=== PATIENT | female | born 1975 | race Caucasian/White ===

== ENCOUNTER 2019-01-27 11:59 | Emergency (ER) | payer MEDICARE, OTHER ==
[2019-01-27 12:03] VITALS: TEMP 98.7
--- NOTE | 2019-01-27 12:51 | XR ---
EXAMINATION TYPE: XR chest 2V DATE OF EXAM: 01/27/2019 COMPARISON: NONE HISTORY: Sinus congestion and cough. TECHNIQUE: Frontal and lateral views of the chest are obtained. FINDINGS: There is no focal air space opacity, pleural effusion, or pneumothorax seen. The cardiac silhouette size is upper limits of normal. There is S-shaped scoliosis which is dextroconvex in curva ture centered mid to lower thoracic spine and levoconvex in curvature centered visualized portion of lumbar spine. IMPRESSION: No suspicious acute pulmonary process.
--- NOTE | 2019-01-27 13:18 | ED ---
URI HPI - General Chief Complaint: Upper Respiratory Infection Stated Complaint: Cough, sore throat Time Seen by Provider: 01/27/19 12:12 Source: patient Mode of arrival: ambulatory Limitations: no limitations - History of Present Illness Initial Comments: Patient is a 43-year-old female presenting to the emergency Department with complaints of a cough, runny nose, chest congestion for 4 days. Patient also woke up this morning with crusting and redness of her right eye. Patient denies fever, chills, nausea, vomiting, diarrhea, shortness of breath, chest pain. Patient states she has been under a lot of stress lately. Patient has no other complaints at this time. Upon arrival to the ER, vital signs are stable. - Related Data Home Medications Medication Instructions Recorded Confirmed Ergocalciferol [Vitamin D2] 50,000 unit PO Q7D 05/06/15 05/06/15 Sertraline HCl 1 tab PO DAILY 05/06/15 05/06/15 Simvastatin 1 tab PO DAILY 05/06/15 05/06/15 Previous Rx's Medication Instructions Recorded Polymyxin B-Trimeth Sulf Ophth 1 drops RIGHT EYE Q4H 5 Days #1 01/27/19 [Polytrim Opthalmic] bottle methylPREDNISolone [Medrol Dose 4 mg PO DIRECTED #1 pack 01/27/19 Pack] Allergies Allergy/AdvReac Type Severity Reaction Status Date / Time No Known Allergies Allergy Verified 01/27/19 12:03 Review of Systems ROS Statement: Those systems with pertinent positive or pertinent negative responses have been documented in the HPI. ROS Other: All systems not noted in ROS Statement are negative. Past Medical History Past Medical History: Hyperlipidemia Past Surgical History: No Surgical Hx Reported Past Psychological History: Anxiety, Depression Smoking Status: Never smoker Past Alcohol Use History: None Reported Past Drug Use History: None Reported General Exam - General Exam Comments Initial Comments: GENERAL: Well-appearing, well-nourished and in no acute distress. HEAD: Atraumatic, normocephalic. EYES: Pupils equal round and reactive to light, extraocular movements intact, sclera anicteric. Right eyes is erythematous, mild active discharge. ENT: TMs normal, nares patent, oropharynx clear without exudates. Moist mucous membranes. NECK: Normal range of motion, supple without lymphadenopathy or JVD. LUNGS: Breath sounds clear to auscultation bilaterally and equal. No wheezes rales or rhonchi. HEART: Regular rate and rhythm without murmurs, rubs or gallops. ABDOMEN: Soft, nontender, normoactive bowel sounds. No guarding, no rebound. No masses appreciated. EXTREMITIES: Normal range of motion, no pitting or edema. No clubbing or cyanosis. NEUROLOGICAL: Normal speech, normal gait. PSYCH: Normal mood, normal affect. SKIN: Warm, Dry, normal turgor, no rashes or lesions noted. Limitations: no limitations Course Vital Signs 01/27/19 01/27/19 01/27/19 12:01 12:18 13:31 Temperature 98.7 F 98.7 F Pulse Rate 78 74 Respiratory 18 19 17 Rate Blood Pressure 145/89 137/74 O2 Sat by Pulse 97 99 Oximetry Medical Decision Making - Medical Decision Making Patient is a 43-year-old female presenting with URI-type symptoms. Chest x-ray reveals no acute process. Discussed with patient is most likely bronchitis. Patient will be given antibiotic eye drops for possible bacterial conjunctivitis of the right eye as well as steroid pack for the bronchitis. Patient is agreeable with this plan of care. Patient is stable for discharge at this time. Return parameters were discussed with the patient she verbalized understanding. Case discussed with Dr. Remy. Disposition Clinical Impression: Upper respiratory tract infection, Conjunctivitis, right eye Disposition: HOME SELF-CARE Condition: Stable Instructions (If sedation given, give patient instructions): Upper Respiratory Infection (ED), Conjunctivitis (ED) Additional Instructions: Please return to the Emergency Department if symptoms worsen or any other concerns. Take prescriptions as indicated. Follow-up with PCP if symptoms persist. Prescriptions: methylPREDNISolone [Medrol Dose Pack] 4 mg PO DIRECTED #1 pack Polymyxin B-Trimeth Sulf Ophth [Polytrim Opthalmic] 1 drops RIGHT EYE Q4H 5 Days #1 bottle Is patient prescribed a controlled substance at d/c from ED?: No Referrals: Dudley Koo MD [Primary Care Provider] - 1-2 days
[2019-01-27 13:33] VITALS: BP 137/74; PULSE 74; RESP 17
== END 2019-01-27 13:33 | disposition home or self-care (01) ==
LOC: EC 11:59
DX: J06.9 Acute upper respiratory infection, unspecified (principal); H10.9 Unspecified conjunctivitis; J40 Bronchitis, not specified as acute or chronic; E78.5 Hyperlipidemia, unspecified; F32.9 Major depressive disorder, single episode, unspecified; F41.9 Anxiety disorder, unspecified; Z79.899 Other long term (current) drug therapy
CPT/HCPCS: 71046; 99283

== ENCOUNTER → 2023-07-28 | Outpatient (CLI) | payer MEDICARE, OTHER ==
[2023-07-28 19:33] LABS: ALT 22 U/L (8-44); AST 18 U/L (13-35); Blood Urea Nitrogen 17.9 mg/dL (9.0-27.0); Rheumatoid Factor, Qnt <15 IU/mL (0-15); Uric Acid 5.2 mg/dL (2.9-7.7)
[2023-07-29 09:20] LABS: HLA B27 POSITIVE
== END | disposition home or self-care (01) ==
LOC: LABWHC1 11:24
PROVIDERS: ATTEND Podiatrist
DX: M10.9 Gout, unspecified (principal); L40.52 Psoriatic arthritis mutilans
CPT/HCPCS: 36415; 82565; 84450; 84460; 84520; 84550; 85652; 86038; 86431; 86812

== ENCOUNTER → 2023-08-09 | Outpatient (CLI) | payer MEDICARE, OTHER ==
--- NOTE | 2023-08-09 11:10 | XR ---
EXAMINATION TYPE: XR thoracic spine complete DATE OF EXAM: 08/09/2023 COMPARISON: NONE CLINICAL INDICATION: Female, 47 years old with history of M54.2 CERVICALGIA M54.6 PAIN IN THORACIC SP INE; FINDINGS: Scoliotic arch is mild multilevel hypertrophic and degenerative disc disease. Pedicles intact. Mild g eneralized demineralization. Visualized lung barajas clear. IMPRESSION: Scoliosis with multilevel mild degenerative disc disease.
--- NOTE | 2023-08-09 11:11 | XR ---
EXAMINATION TYPE: XR cervical spine comp DATE OF EXAM: 08/09/2023 COMPARISON: NONE CLINICAL INDICATION: Female, 47 years old with history of M54.2 CERVICALGIA M54.6 PAIN IN THORACIC SP INE; FINDINGS: Straightening of the cervical spine with multilevel mild hypertrophic and degenerative disc disease. Soft tissue ossification or calcification posteriorly. Mild foraminal encroachment C4-C5. IMPRESSION: Multilevel mild hypertrophic and degenerative changes.
== END | disposition home or self-care (01) ==
LOC: RADXRMAIN 10:23
PROVIDERS: ATTEND Chiropractor
DX: M51.34 Other intervertebral disc degeneration, thoracic region (principal); M47.812 Spondylosis without myelopathy or radiculopathy, cervical region; M41.9 Scoliosis, unspecified
CPT/HCPCS: 72050; 72072

== ENCOUNTER 2023-09-07 07:31 | Day surgery (SDC) | payer MEDICARE, OTHER ==
[2023-09-07 07:50] VITALS: RESP 16; TEMP 97.2
[2023-09-07 07:58] LABS: Glucose,Whole Blood 103 mg/dL (70-110)
[2023-09-07] MEDS: LACTATED RINGERS 1,000 ML IV SCH (08:01)
[2023-09-07] MEDS: IV FLUID CONTINUATION 1,000 ML IV ONE (08:01)
[2023-09-07] MEDS ORDERED: PROPOFOL 10 MG/ML 20 ML VIAL IV ONE (08:40)
--- NOTE | 2023-09-07 09:02 | P.PCN ---
Date of Procedure: 09/07/23 Procedure(s) Performed: BRIEF HISTORY: Patient is a 47-year-old pleasant white female scheduled for an elective colonoscopy as a part of evaluation of Hemoccult positive stool. PROCEDURE PERFORMED: Colonoscopy. PREOPERATIVE DIAGNOSIS: Hemoccult positive stool. IV sedation per Anesthesia. PROCEDURE: After informed consent was obtained, the patient, was brought into the endoscopy unit. IV sedation was administered by Anesthesia under continuous monitoring. Digital rectal examination was normal. Initially the Olympus CF-160 flexible video colonoscope was then inserted in the rectum, gradually advanced into the cecum without any difficulty. Careful examination was performed as the scope was gradually being withdrawn. Ileocecal valve and the appendiceal orifice were visualized and appeared normal. Prep was excellent. Mucosa of the cecum, ascending colon, transverse colon, descending colon, sigmoid colon, and rectum appeared normal. Retroflexion was performed in the rectum and no lesions were seen. The patient tolerated the procedure well. IMPRESSION: Normal-appearing colon from rectum to cecum no evidence of colorectal neoplasia. RECOMMENDATIONS: Findings of this examination were discussed with the patient as well as her family. She was advised to have repeat screening colonoscopy in 10 years..
[2023-09-07 09:24] VITALS: BP 104/68; PULSE 59
== END 2023-09-07 09:44 | disposition home or self-care (01) ==
LOC: ORWHC2ENDO 07:31
PROVIDERS: ATTEND Internal Medicine Gastroenterology
DX: R19.5 Other fecal abnormalities (principal); I10 Essential (primary) hypertension; E78.5 Hyperlipidemia, unspecified; E11.9 Type 2 diabetes mellitus without complications; F41.9 Anxiety disorder, unspecified; K21.9 Gastro-esophageal reflux disease without esophagitis; F32.A Depression, unspecified; Z79.899 Other long term (current) drug therapy
CPT/HCPCS: 45378; J2704